=== PATIENT | male | born 1965 | race Caucasian/White ===

== ENCOUNTER 2023-03-30 19:45 | Inpatient (IN) | payer MEDICARE, SELFPAY ==
--- NOTE | 2023-03-30 14:34 | P.EN_ITS ---
Documented by User: Shira Carmen, [employer] SENIOR DEVELOPER 03/30/23 14:37 Event Note Date of Service: 03/30/23 Event Note: Physician review with Minerva of [facility]. 57 yo male, hx PTSD (Service connected), depression, opioid use disorder, on methadone, alcohol use disorder admitted to their service s/p OD of Zquil, Klonopin, Prazosin in a suicide attempt. Precipitant appears to be the break up of a relationship with partner leaving in February 2023 and resulting grief. Pt is medically stable, had charcoal in the ER. He is vague about alcohol consumption, CIWA's have all been very low. Home med regime has been re-started, diagnostics are all WNL. EKG repeated this afternoon shows NSR without a bnormality. Time Spent With Patient Time: Total time managing care of this patient today ____ minutes. Documented by User: Rebel Way MD 04/01/23 19:35 Event Note Date of Service: 04/01/23
--- OUTSIDE RECORDS SUMMARY | 2023-03-30 19:51 | XMS_ITS | Patient Health Record ---
Author Name Unknown Organization [facility] Address [address], [place] [id number] Care Team Providers Care Dismantler Name Role Phone Gretchen Mckinney Unavailable [phone] REASON FOR REFERRAL No Information SOCIAL HISTORY Sex Assigned At : Social History Observation Description Sex Assigned At Unknown PLAN OF TREATMENT No Information Insurance Providers Payer Name Payer Address Payer Phone Subscriber Number Group Number Insured Name Patient Relationship to Insured Coverage Start Date Coverage End Date [place] Medicare Part A [employer] [address] [facility] [place] [id number] Aditya Del Real Self - patient is the insured
[2023-03-30 22:15] VITALS: BP 143/78; PULSE 87
[2023-03-30] MEDS: hydrOXYzine HCL 25 MG TABLET PO (22:21)
[2023-03-30] MEDS: traZODone HCL 50 MG TABLET PO (22:21)
[2023-03-30] MEDS: Prazosin HCL 1 MG CAPSULE 2 MG PO (22:21)
[2023-03-30] MEDS: clonazePAM 0.5 MG TABLET 1.5 MG PO (22:21)
--- NOTE | 2023-03-31 00:52 | PC.ADMIT ---
Patient is a 57 year old single, Indonesian speaking male admitted as a CV admission to , 03/30/23 at 2000 and placed on 15 minute safety checks. Patient noted to be status post intentional overdose of OTC Nyquil and his prescribed medications. Patient was medically treated, evaluated psychiatrically, and deemed in need of IPLOC due to his continued report of SI. Patient has a long history of PTSD, inpatient psychiatric admissions and a remote history of alcohol abuse. Pt stated he had been inpatient at [place] [id number] in the past. During the admission process patient was noted to be tense and tearful. He said he still wanted to and was ruminating about his partner of 10 years who suddenly broke up with him about a month ago. He said Everything reminds me of her . I have to see her every day when I get my Methadone. Patient said that he has just been walking around his apartment for the last few weeks trying to figure out a way to suicide. Patient told this securities underwriter what medications are current, but given the record from the pharmacy report as well as his recent overdose, the iron setter provider Dr. Jesus Taylor was reluctant to give him his reported doses. He will need to review his medications with the iron setter provider on Sunday. Patient was able to report he has no AH, VH or HI and his current SI is just d/t feeling sad, but he does feel safe on the unit. Patient cooperative during admission process, including skin check. Safety tool, treatment plan done but need to be signed. Legals signed, although patient denied any current therapist or psychiatrist and was unable to remember the name of his methadone clinic in [place].
[2023-03-31] MEDS: Omeprazole 40 MG CAPSULE.DR PO (06:04)
[2023-03-31 08:07] VITALS: BP 156/109; PULSE 95; RESP 16; TEMP 36.6; O2SAT 95
[2023-03-31 08:34] LABS: Estimated Average Glucose 146 mg/dL; Hemoglobin A1c % 6.7 % (<6.0)
[2023-03-31 08:37] LABS: Alanine Aminotransferase 18 U/L (0-40); Albumin Level 4.3 g/dL (3.5-5.0); Alkaline Phosphatase 107 U/L (39-117); Anion Gap 14 (12-20); Aspartate Amino Transferase 30 U/L (5-37); Bilirubin Total 1.1 mg/dL (0.0-1.0); Blood Urea Nitrogen 12 mg/dL (9-16); Calcium 9.3 mg/dL (8.4-10.2); Carbon Dioxide 29 mmol/L (22-29); Chloride 102 mmol/L (96-108); Cholesterol 113 mg/dL (<200); Estimated Glomerular Filt Rate > 60; Glucose Fasting 138 mg/dL (60-99); HDL Cholesterol 27 mg/dL (>40); LDL Cholesterol Calculated 58 mg/dL (<100); Sodium 141 mmol/L (135-145); Total Protein 7.3 g/dL (6.5-8.0); Triglycerides 140 mg/dL (<150)
[2023-03-31 08:53] LABS: Free T4 (Free Thyroxine) 0.98 ng/dL (0.71-1.85); Thyroid Stimulating Hormone 2.14 uIU/mL (0.32-4.0)
[2023-03-31] MEDS: clonazePAM 0.5 MG TABLET 1.5 MG PO ×2 (08:55→20:22)
[2023-03-31] MEDS: ARIPiprazole 10 MG TABLET PO (08:55)
[2023-03-31 09:12] LABS: Folate 7.4 ng/mL (> or = 4.0); Vitamin B12 283 pg/mL (200-900)
[2023-03-31] MEDS: Acetaminophen 325 MG TABLET 650 MG PO (09:42)
[2023-03-31] MEDS: hydrOXYzine HCL 25 MG TABLET PO (09:42)
--- NOTE | 2023-03-31 09:58 | PC.NURSE ---
pt reports he receives methadone @ [facility] in [place]. Called @ 9am 03/31/23 and left message for verification.
--- NOTE | 2023-03-31 10:35 | P.HPPS_ITS ---
HPI Date of Service: 03/31/23 Chief Complaint: F41.9 Sources of Information: patient interviewed, chart reviewed and crisis/core team assessment reviewed HPI Subjective Notes: Dial Warning and Conditional Voluntary Healthcare Proxy: No Guardianship: No Medical Problems Affecting Mental Status: Yes (withdrawal) Narrative: 57 yo male, hx PTSD (/Service connected), depression, opioid use disorder, on methadone, alcohol use disorder admitted to [facility] s/p OD of Zquil, Klonopin, Prazosin in a suicide attempt. Precipitant appears to be the break up of a relationship with partner leaving in February 2023 and resulting grief. Pt is medically stable upon admission to , had charcoal in the ER. He is vague about alcohol consumption, CIWA's have all been very low. Home med regime has been re-started, diagnostics are all WNL. EKG repeated this afternoon shows NSR without abnormality. Pt depressed, tearful distraught saying he wants to ; states he can not stop thinking of GF of 10 years who abruptly ended relationship last month. He is able to state he would feel better if he could stop thinking about her but finds he is unable. Past Psychiatric History: IPLOC 2008 [facility]- overdose intentional after job loss and relationship break up IPLOC [facility] 2019-depression and SI multiple crisi evals in past Medical Evaluation Reviewed: Hospitalist Eval Pending medically cleared at [facility] PMFSH Narrative: s/p intentional overdose on benadrul, prazosin, zzquil, nyquil, clonazepam hx of other intentional overdoses [place] PTSD alcohol abuse in past chronic back pain high glucose hx fracture of mandible HTN Hernia MRSA cellulitis PUD seasonal allergies rectus diastasis Narrative: removel IMF screws 2018 open treatment mandible fracture with interdental fixation 2018 espohagogastroduodenoscopy 2017 colonoscopy 2017 repair ventral hernia 2011 small bowel resection 2006 Family History: lives alone recent break up of 10 yr relationship Social History: disabled; service connected Substance History: etoh 3-5 times a week in past says not current , cocaine in past, opiates on MAT no drug use since 2013 Trauma History: ptsd from service Diagnostics Vital Signs (24Hr): Vital Signs - 24 hr 03/30/23 22:15 Pulse Rate 87 Blood Pressure 143/78 H Labs 03/31/23 08:02 Labs: Laboratory Results - last 48 hr 03/31/23 08:02 Sodium 141 Potassium 4.0 Chloride 102 Carbon Dioxide 29 Anion Gap 14 BUN 12 Creatinine 0.95 Estim Creat Clear Calc TNP Estimated GFR > 60 Fasting Glucose 138 H Estimat Average Glucose 146 Hemoglobin A1c % 6.7 H Calcium 9.3 Total Bilirubin 1.1 H AST 30 ALT 18 Alkaline Phosphatase 107 Total Protein 7.3 Albumin 4.3 Triglycerides 140 Cholesterol 113 LDL Cholesterol, Calc 58 HDL Cholesterol 27 L Vitamin B12 283 Folate 7.4 TSH 2.14 Free T4 0.98 EKG EKG Comment: pending Meds/Allergies Meds Home Medications Medication Instructions Recorded Confirmed Type aripiprazole 10 mg tablet 10 mg PO QAM 03/30/23 03/30/23 History clonazepam 2 mg tablet 2 mg PO BID 03/30/23 03/30/23 History eszopiclone 3 mg tablet 3 mg PO BEDTIME 03/30/23 03/30/23 History methadone 03/30/23 History omeprazole 40 mg capsule,delayed 40 mg PO DAILY 03/30/23 03/30/23 History release prazosin 5 mg capsule 5 mg PO BEDTIME 03/30/23 03/30/23 History Allergies Allergies Allergy/AdvReac Type Severity Reaction Status Date / Time shellfish derived Allergy Severe SWELLING Unverified 02/05/20 16:50 [SHELLFISH DERIVED] egg [EGGS] Allergy Mild UNKNOWN Unverified 02/05/20 16:50 Mental Status Exam Mental Status Exam Patient Appearance: Disheveled and Unkempt Patient Orientation: Person, Place, Time and Situation Level of Consciousness: Awake Patient Behavior: Cooperative and Crying Mood Description: Depressed and Sad Affect Description: Labile and Sad Patient Cognition Impaired: No Ability to Follow Directions: Good Speech Pattern: Appropriate, Spontaneous Speech and Excessive Memory Description: Intact Hallucinations: None Thought Process: Rumination Thought Content: positive for Perseveration, positive for Preoccupation and positive for Suicidal Ideation Judgement: Fair Assessment & Plan Assessment & Plan (1) Major depress dis, severe: Status: Acute Code(s): F32.2 - Major depressive disorder, single episode, severe without psychotic features (2) Post traumatic stress disorder (PTSD): Status: Acute Code(s): F43.10 - Post-traumatic stress disorder, unspecified (3) Suicidal ideation: Status: Acute Code(s): R45.851 - Suicidal ideations Plan 57 yo male, hx PTSD (/Service connected), depression, opioid use disorder, on methadone, alcohol use disorder admitted to [facility] s/p OD of Zquil, Klonopin, Prazosin in a suicide attempt. Precipitant appears to be the break up of a relationship with partner leaving in February 2023 and resulting grief. Pt is medically stable upon admission to . Pt depressed, tearful distraught saying he wants to ; states he can not stop thinking of GF of 10 years who abruptly ended relationship last month. He is able to state he would feel better if he could stop thinking about her but finds he is unable. Plan Admit to CV 5 min checks restart home meds recheck EKG hospitalist consult labs consider adding additional antidepressant if EKG normal and QTC in normal range collateral contact d/c planning Patient educated on: diagnosis, medication risk/benefits and therapeutic strategies Informed Consent: understands and further education needed Reason for continued inpatient stay Substantial Risk for: harm to self, inability to function and rapid decompensation Statement Statement: I have reviewed the history and physical and performed a pertinent examination on my patient. No changes have occurred unless specified. If the History and Physical was not performed prior to admission, the Hospitalist's service will be consulted for completing the admission physical. Time Spent With Patient Time: Total time managing care of this patient today ____ minutes.
--- NOTE | 2023-03-31 12:52 | HE.PHANOTE ---
RE: METHADONE Pharmacy received patients methadone verification form. Verified by Ginna HERZOG on M5, she verified with Jihan (EDRN) with [facility] ED. Last doses per form 125 mg on 03/30/23
[2023-03-31] MEDS: methADONE HCl 20 MG/2 ML ORAL.CONC 125 MG PO (12:55)
[2023-03-31 16:53] VITALS: BP 116/54; PULSE 69; TEMP 36.3; O2SAT 95
[2023-03-31] MEDS: Prazosin HCL 1 MG CAPSULE 4 MG PO (20:22)
[2023-03-31 20:24] VITALS: BP 132/73; PULSE 97
[2023-04-01] MEDS: hydrOXYzine HCL 25 MG TABLET PO ×2 (03:53→09:50)
[2023-04-01] MEDS: Omeprazole 40 MG CAPSULE.DR PO (05:49)
[2023-04-01] MEDS: QUEtiapine Fumarate 50 MG TABLET PO (06:43)
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
[2023-04-01 08:32] VITALS: BP 116/69; PULSE 100; RESP 16; TEMP 36.2; O2SAT 95
[2023-04-01] MEDS: clonazePAM 0.5 MG TABLET 1.5 MG PO ×2 (09:08→21:55)
[2023-04-01] MEDS: ARIPiprazole 10 MG TABLET PO (09:08)
[2023-04-01] MEDS: methADONE HCl 20 MG/2 ML ORAL.CONC 125 MG PO (09:08)
[2023-04-01] MEDS: buPROPion HCl XL 150 MG TAB.ER.24H PO (14:45)
[2023-04-01 18:00] VITALS: BP 133/58; PULSE 81; TEMP 36.7; O2SAT 95
--- NOTE | 2023-04-01 18:17 | HO.PSYCHPN ---
Subjective Subjective Date of Service: 04/01/23 Reason For Visit: F41.9 Subjective Notes: Conditional Voluntary Interim History: 57 yo male, hx PTSD ([place]/Service connected), depression, opioid use disorder, on methadone, alcohol use disorder admitted to [facility] s/p OD of Zquil, Klonopin, Prazosin in a suicide attempt. Precipitant appears to be the break up of a relationship with partner leaving in February 2023 and resulting grief. Pt is medically stable upon admission to . Pt depressed, tearful distraught saying he wants to ; states he can not stop thinking of GF of 10 years who abruptly ended relationship last month. He is able to state he would feel better if he could stop thinking about her but finds he is unable. Pt reports he was on wellbutrin in the past with good effect and would like to restart; he also reports needs a PRN for when he starts to obsessing about GF and can't stop. discussed trial of seroquel 25 mg prn - he is agreeable. 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 [employer] Medication Compliance: Yes Side effects from medications: No Attending Groups: Yes Review of Systems Acute medical concerns: No Medical Review of Systems: unchanged Review of Systems Review of Systems Yes all other systems are reviewed and are negative Mental Status Exam Mental Status Exam Patient Appearance: Unkempt Patient Orientation: Person, Place, Time and Situation Level of Consciousness: Awake Patient Behavior: Appropriate and Crying Mood Description: Anxious and Sad Affect Description: Labile Patient Cognition Impaired: No Ability to Follow Directions: Good Speech Pattern: Clear Memory Description: Intact Thought Process: Intact Thought Content: positive for Intact and positive for Preoccupation Judgement: Fair Diagnostics Vital Signs (24Hr): Vital Signs - 24 hr 03/31/23 20:24 04/01/23 08:32 Temperature 97.2 F Pulse Rate 97 100 Respiratory Rate 16 Blood Pressure 132/73 116/69 Pulse Oximetry 95 Oxygen Delivery Method Room Air Labs 03/31/23 08:02 Labs: Laboratory Results - last 48 hr 03/31/23 08:02 Sodium 141 Potassium 4.0 Chloride 102 Carbon Dioxide 29 Anion Gap 14 BUN 12 Creatinine 0.95 Estim Creat Clear Calc TNP Estimated GFR > 60 Fasting Glucose 138 H Estimat Average Glucose 146 Hemoglobin A1c % 6.7 H Calcium 9.3 Total Bilirubin 1.1 H AST 30 ALT 18 Alkaline Phosphatase 107 Total Protein 7.3 Albumin 4.3 Triglycerides 140 Cholesterol 113 LDL Cholesterol, Calc 58 HDL Cholesterol 27 L Vitamin B12 283 Folate 7.4 TSH 2.14 Free T4 0.98 Medications Medications Current Medications Acetaminophen (Acetaminophen 325 Mg Tablet) 650 mg PO Q6H PRN PRN Reason: Headache/Pain Mild Scale (1-3) Last Admin: 03/31/23 09:42 Dose: 650 mg Al Hydroxide/Mg Hydroxide (Magnesium Hydrox/Alum Hydrox 30 Ml Oral.Susp) 30 ml PO Q6H PRN PRN Reason: Heartburn/Nausea Aripiprazole (Aripiprazole 10 Mg Tablet) 10 mg PO DAILY [facility] Last Admin: 04/01/23 09:08 Dose: 10 mg Bupropion HCl (Bupropion Hcl Xl 150 Mg Tab.Er.24h) 150 mg PO DAILY [facility] Last Admin: 04/01/23 14:45 Dose: 150 mg Clonazepam (Clonazepam 0.5 Mg Tablet) 1.5 mg PO BID [facility] Last Admin: 04/01/23 09:08 Dose: 1.5 mg Hydroxyzine HCl (Hydroxyzine Hcl 25 Mg Tablet) 25 mg PO Q6H PRN PRN Reason: Anxiety Last Admin: 04/01/23 09:50 Dose: 25 mg Magnesium Hydroxide (Milk Of Magnesia 30 Ml Oral.Susp) 30 ml PO DAILY PRN PRN Reason: Constipation Methadone HCl (Methadone Hcl 20 Mg/2 Ml Oral.Conc) 125 mg PO DAILY [facility] Last Admin: 04/01/23 09:08 Dose: 125 mg Nicotine Polacrilex (Nicotine Polacrilex 2 Mg Gum) 4 mg BUCCAL Q2H PRN PRN Reason: Nicotine Cravings Omeprazole (Omeprazole 40 Mg Capsule.Dr) 40 mg PO DAILY@0630 [facility] Last Admin: 04/01/23 05:49 Dose: 40 mg Prazosin HCl (Prazosin Hcl 1 Mg Capsule) 4 mg PO BEDTIME [facility]; Protocol Last Admin: 03/31/23 20:22 Dose: 4 mg Quetiapine Fumarate (Quetiapine Fumarate 25 Mg Tablet) 25 mg PO TID PRN PRN Reason: racing thoughts Trazodone HCl (Trazodone Hcl 50 Mg Tablet) 50 mg PO BEDTIME MRX1 PRN PRN Reason: Insomnia Last Admin: 03/30/23 22:21 Dose: 50 mg Allergies Allergies Allergy/AdvReac Type Severity Reaction Status Date / Time shellfish derived Allergy Severe SWELLING Unverified 02/05/20 16:50 [SHELLFISH DERIVED] egg [EGGS] Allergy Mild UNKNOWN Unverified 02/05/20 16:50 Assessment & Plan Assessment & Plan (1) Suicidal ideation: Status: Acute Code(s): R45.851 - Suicidal ideations (2) Post traumatic stress disorder (PTSD): Status: Acute Code(s): F43.10 - Post-traumatic stress disorder, unspecified (3) Major depress dis, severe: Status: Acute Code(s): F32.2 - Major depressive disorder, single episode, severe without psychotic features (4) GERD (gastroesophageal reflux disease): Status: Acute Code(s): K21.9 - Gastro-esophageal reflux disease without esophagitis Plan 57 yo male, hx PTSD (/Service connected), depression, opioid use disorder, on methadone, alcohol use disorder admitted to [facility] s/p OD of Zquil, Klonopin, Prazosin in a suicide attempt. Precipitant appears to be the break up of a relationship with partner leaving in February 2023 and resulting grief. Pt is medically stable upon admission to . Pt depressed, tearful distraught saying he wants to ; states he can not stop thinking of GF of 10 years who abruptly ended relationship last month. He is able to state he would feel better if he could stop thinking about her but finds he is unable. plan cv 15 min checks start wellbutrin xl 150 mg qam for depression seroquel 25mg tid prn obsessing thoughts and agitation/anxiety Patient educated on: diagnosis, medication risk/benefits and therapeutic strategies Informed Consent: understands and further education needed Reason for continued inpatient stay Substantial Risk for: harm to self, inability to function and rapid decompensation Time Spent With Patient Time: Total time managing care of this patient today ____ minutes.
[2023-04-01] MEDS: traZODone HCL 50 MG TABLET PO (21:56)
[2023-04-01] MEDS: Prazosin HCL 1 MG CAPSULE 4 MG PO (21:56)
[2023-04-02] MEDS: QUEtiapine Fumarate 25 MG TABLET PO ×3 (04:27→20:24)
[2023-04-02 06:00] VITALS: BP 123/77; PULSE 93; RESP 16; TEMP 36.5; O2SAT 100
[2023-04-02] MEDS: methADONE HCl 20 MG/2 ML ORAL.CONC 125 MG PO (08:39)
[2023-04-02] MEDS: buPROPion HCl XL 150 MG TAB.ER.24H PO (08:41)
[2023-04-02] MEDS: clonazePAM 0.5 MG TABLET 1.5 MG PO ×2 (08:41→20:24)
[2023-04-02] MEDS: ARIPiprazole 10 MG TABLET PO (08:41)
[2023-04-02] MEDS: Omeprazole 40 MG CAPSULE.DR PO (08:54)
--- NOTE | 2023-04-02 09:00 | ECG_ITS ---
Test Reason : qtc Blood Pressure : / mmHG Vent. Rate : 091 BPM Atrial Rate : 091 BPM P-R Int : 174 ms QRS Dur : 074 ms QT Int : 348 ms P-R-T Axes : 032 011 037 degrees QTc Int : 428 ms Normal sinus rhythm Normal ECG When compared with ECG of 02-AUG-2018 13:05, No significant change was found Referred By: Lisandra Valencia Electronically Signed By:BREN PAVON MD
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
[2023-04-02] MEDS: hydrOXYzine HCL 25 MG TABLET PO ×2 (11:44→18:25)
[2023-04-02 16:05] VITALS: BP 145/75; PULSE 105; TEMP 37.4; O2SAT 95
[2023-04-02] MEDS: cloNIDine HCL 0.1 MG TABLET PO (16:09)
[2023-04-02 20:19] VITALS: BP 163/79; PULSE 95
[2023-04-02] MEDS: Prazosin HCL 1 MG CAPSULE 4 MG PO (20:24)
[2023-04-02] MEDS: traZODone HCL 50 MG TABLET PO (20:24)
[2023-04-03] MEDS: Omeprazole 40 MG CAPSULE.DR PO (06:01)
[2023-04-03 08:20] VITALS: BP 118/72; PULSE 104; RESP 18; TEMP 36.5; O2SAT 96
[2023-04-03] MEDS: clonazePAM 0.5 MG TABLET 1.5 MG PO ×2 (08:33→19:46)
[2023-04-03] MEDS: buPROPion HCl XL 150 MG TAB.ER.24H PO (08:33)
[2023-04-03] MEDS: Acetaminophen 325 MG TABLET 650 MG PO (08:34)
[2023-04-03] MEDS: ARIPiprazole 10 MG TABLET PO (08:34)
[2023-04-03] MEDS: methADONE HCl 20 MG/2 ML ORAL.CONC 125 MG PO (08:58)
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
[2023-04-03] MEDS: QUEtiapine Fumarate 25 MG TABLET PO (12:18)
[2023-04-03] MEDS: hydrOXYzine HCL 25 MG TABLET PO ×2 (12:18→18:12)
[2023-04-03] MEDS: cloNIDine HCL 0.1 MG TABLET PO ×3 (12:19→19:46)
[2023-04-03 17:55] VITALS: BP 124/77; PULSE 88; RESP 16; TEMP 36.5; O2SAT 98
[2023-04-03 19:45] VITALS: BP 135/63; PULSE 80
[2023-04-03] MEDS: Prazosin HCL 1 MG CAPSULE 4 MG PO (19:46)
[2023-04-04] MEDS: QUEtiapine Fumarate 25 MG TABLET PO ×2 (05:14→20:31)
[2023-04-04] MEDS: Omeprazole 40 MG CAPSULE.DR PO (05:19)
[2023-04-04 07:40] VITALS: BP 107/68; PULSE 77; RESP 18; TEMP 36.4; O2SAT 97
[2023-04-04] MEDS: buPROPion HCl XL 150 MG TAB.ER.24H PO (08:35)
[2023-04-04] MEDS: ARIPiprazole 10 MG TABLET PO (08:35)
[2023-04-04] MEDS: clonazePAM 0.5 MG TABLET 1.5 MG PO ×3 (08:35→20:29)
[2023-04-04] MEDS: methADONE HCl 20 MG/2 ML ORAL.CONC 125 MG PO (08:36)
[2023-04-04] MEDS: hydrOXYzine HCL 25 MG TABLET PO (08:38)
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
[2023-04-04] MEDS: cloNIDine HCL 0.1 MG TABLET PO ×3 (14:23→20:31)
[2023-04-04 18:10] VITALS: BP 125/67; PULSE 75; TEMP 36.4; O2SAT 96
[2023-04-04 20:23] VITALS: BP 137/62; PULSE 67
[2023-04-04] MEDS: Prazosin HCL 1 MG CAPSULE 4 MG PO (20:29)
[2023-04-05] MEDS: Omeprazole 40 MG CAPSULE.DR PO (06:27)
[2023-04-05 07:00] VITALS: BMI 36.5
[2023-04-05 08:10] VITALS: BP 125/77; PULSE 60; RESP 18; TEMP 36.3; O2SAT 98
[2023-04-05] MEDS: ARIPiprazole 10 MG TABLET PO (08:35)
[2023-04-05] MEDS: buPROPion HCl XL 150 MG TAB.ER.24H PO (08:35)
[2023-04-05] MEDS: methADONE HCl 20 MG/2 ML ORAL.CONC 125 MG PO (08:36)
[2023-04-05] MEDS: clonazePAM 0.5 MG TABLET 1.5 MG PO ×2 (08:41→20:35)
[2023-04-05] MEDS: QUEtiapine Fumarate 25 MG TABLET PO ×2 (08:41→17:25)
[2023-04-05] MEDS: hydrOXYzine HCL 25 MG TABLET PO ×3 (08:41→20:34)
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
[2023-04-05 18:35] VITALS: BP 140/91; PULSE 111; RESP 16; TEMP 36.6; O2SAT 97
[2023-04-05] MEDS: Prazosin HCL 1 MG CAPSULE 4 MG PO (20:35)
[2023-04-05] MEDS: cloNIDine HCL 0.1 MG TABLET PO (20:35)
[2023-04-06] MEDS: Omeprazole 40 MG CAPSULE.DR PO (05:59)
[2023-04-06 08:22] VITALS: BP 145/68; PULSE 91; RESP 16; TEMP 36.2; O2SAT 98
[2023-04-06] MEDS: ARIPiprazole 10 MG TABLET PO (08:31)
[2023-04-06] MEDS: methADONE HCl 20 MG/2 ML ORAL.CONC 125 MG PO (08:32)
[2023-04-06] MEDS: buPROPion HCl XL 150 MG TAB.ER.24H PO (08:32)
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
[2023-04-06] MEDS: Naloxone HCl Nasal TAKE HOME 4 MG SPRAY 8 MG NOSTRILALT (12:14)
== END 2023-04-06 11:56 | disposition home or self-care (01) | DRG 885 ==
PROVIDERS: Psychiatry & Neurology Psychiatry; Admitting Provider Psychiatry & Neurology Psychiatry; Visit Provider Psychiatry & Neurology Psychiatry
DX: F32.2 Major depressive disorder, single episode, severe without psychotic features (principal); R45.851 Suicidal ideations; F11.20 Opioid dependence, uncomplicated; F43.10 Post-traumatic stress disorder, unspecified; K21.9 Gastro-esophageal reflux disease without esophagitis; Z91.51 Personal history of suicidal behavior; Y37.90XS Military operations, unspecified, sequela; Z79.899 Other long term (current) drug therapy
CPT/HCPCS: 36415; 80053; 80061; 82607; 82746; 83036; 84439; 84443; 93005

== ENCOUNTER → 2023-03-30 19:45 | Outpatient (BNV) | payer MEDICARE, SELFPAY | PROVIDERS: Admitting Provider Psychiatry & Neurology Psychiatry; Visit Provider Internal Medicine | DX: K21.9 Gastro-esophageal reflux disease without esophagitis (principal) | CPT/HCPCS: 99222 ==

== ENCOUNTER → 2023-03-30 19:45 | Outpatient (BNV) | payer MEDICARE, SELFPAY | PROVIDERS: Admitting Provider Psychiatry & Neurology Psychiatry; Visit Provider Clinical Nurse Specialist Psychiatric/Mental Health | DX: F33.2 Major depressive disorder, recurrent severe without psychotic features (principal); F43.11 Post-traumatic stress disorder, acute; K21.9 Gastro-esophageal reflux disease without esophagitis | CPT/HCPCS: 90792; 99231; 99232; 99238; 99499 ==